=== PATIENT | male | born 1980 | race Hispanic/Latino ===

== ENCOUNTER 2018-03-02 00:59 | Emergency (ER) | payer OTHER, SELFPAY ==
[2018-03-02] MEDS ORDERED: Ondansetron ODT 4 MG TAB ONE (01:32)
[2018-03-02 01:58] LABS: #Monocytes 0.7 thou/uL (0.11-0.59); %Basophils 0.2 % (0.0-1.0); %Eosinophils 0.1 % (0.0-10.0); %Lymphocytes 17.3 % (21.0-51.0); %Monocytes 11.6 % (0.0-10.0); %Neutrophils 70.8 % (42.0-75.0); Hemoglobin 14.8 g/dL (14.0-18.0); Mean Corpuscular HGB CONC 34.9 g/dL (32.0-36.0); Mean Corpuscular Hemoglobin 29.8 pg (27.0-31.0); Mean Corpuscular Volume 85.4 fl (80.0-94.0); Mean Platelet Volume 7.6 fL (7.4-10.4); Platelet Count 197 thou/uL (130-400); RBC Distribution Width 11.7 % (11.5-14.5); Red Blood Cell (RBC) Count 4.95 mill/uL (4.70-6.10); White Blood Cell (WBC) Count 5.7 thou/uL (4.8-10.8)
[2018-03-02 02:19] LABS: ALT (SGPT) 46 U/L (8-55); AST (SGOT) 40 U/L (5-34); Albumin 4.6 g/dL (3.5-5.0); Alkaline Phosphatase 65 U/L (40-150); Anion Gap 14 mmol/L (10-20); BUN (Urea Nitrogen) 13 mg/dL (8.9-20.6); Bilirubin, Total 0.3 mg/dL (0.2-1.2); Calc. Creatinine Clearance 0 mL/min (70-130); Calcium 9.3 mg/dL (7.8-10.44); Carbon Dioxide 21 mmol/L (22-29); Chloride 105 mmol/L (98-107); Estimated GFR-MDRD 83; Globulin 3.2 g/dL (2.4-3.5); Glucose 102 mg/dL (70-105); Lipase 18 U/L (8-78); Potassium 3.5 mmol/L (3.5-5.1); Protein, Total 7.8 g/dL (6.0-8.3); Sodium 136 mmol/L (136-145)
[2018-03-02] MEDS ORDERED: Oseltamivir 75 MG CAP PO SCH (03:45)
[2018-03-02] MEDS ORDERED: Pantoprazole 40 MG VIAL ONE (03:48)
[2018-03-02] MEDS ORDERED: Promethazine HCl 25 MG/ML VIAL ONE (03:48)
--- NOTE | 2018-03-02 07:09 | ULT ---
LEFT LOWER EXTREMITY VENOUS DOPPLER DUPLEX ULTRASOUND: CPT: 70891 ICD-10-PCS: B54D INDICATIONS: Cellulitis. Pain. Edema. TECHNIQUE: Color-flow Doppler, spectral wave-form analysis of pulsed Doppler, and higuera-scale imaging with compre ssion and augmentation were used to evaluate the bilateral common femoral, femoral, popliteal, adhesive sprayer ior tibial, and superficial femoral veins, and the proximal portions of the profunda femoral and grea ter saphenous veins. FINDINGS: There is appropriate compressibility and flow within the imaged deep venous system of the left lower extremity. IMPRESSION: No deep venous thrombosis of the left lower extremity. POS: [facility]
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
--- NOTE | 2018-03-02 07:49 | RAD ---
2 VIEWS ABDOMEN AND UPRIGHT VIEW CHEST: Date: 03/02/18 COMPARISON: None. HISTORY: Fever, myalgias, nausea, vomiting, and diarrhea. FINDINGS: 2 views of abdomen and upright view of chest show a nonspecific, nonobstructed bowel gas pattern. Air is seen to the level of the rectum. [place] is seen projecting overlying the abdomen. No free air o r air fluid levels are seen on upright examination. The cardiomediastinal silhouette is normal in size. There is no evidence of consolidation, mass, or p leural effusion. IMPRESSION: No evidence of obstruction. POS: [facility]
== END 2018-03-02 05:05 ==
LOC: ERS 00:59
DX: J10.1 Influenza due to other identified influenza virus with other respiratory manifestations (principal); F32.9 Major depressive disorder, single episode, unspecified; Z79.899 Other long term (current) drug therapy
CPT/HCPCS: 74022; 80053; 83605; 83690; 85025; 85652; 86140; 87804; 94760; 96361; 96372; 96374; 96375; C9113; J2550; Q0162